=== PATIENT | female | born 1985 | race Caucasian/White ===

== ENCOUNTER 2022-12-05 12:35 | Inpatient (IN) | payer OTHER ==
[~2022-12-05] VITALS: Ht 157.5 cm; Wt 90.3 kg
[2022-12-05] MEDS ORDERED: LACTATED RINGERS 1,000 ML IV SCH (13:25)
[2022-12-05] MEDS: LACTATED RINGERS 1,000 ML IV SCH ×2 (13:49→19:27)
[2022-12-05] MEDS ORDERED: METHYLERGONOVINE 0.2 MG/ML AMP IM PRN (13:50)
[2022-12-05 14:06] LABS: BASOPHILS % (AUTO) 0.1 % (0.0-2.0); EOSINOPHILS # (AUTO) 0.1 K/uL (0-0.4); EOSINOPHILS % (AUTO) 0.6 % (0.0-4.0); HEMATOCRIT 36.3 % (36-48); HEMOGLOBIN 12.4 g/dL (12.0-16.0); LYMPHOCYTES # (AUTO) 1.7 K/uL (2.5-16.5); LYMPHOCYTES % (AUTO) 17.3 % (20.5-51.1); MEAN CORPUSCULAR HEMOGLOBIN 31 pg (27-31); MEAN CORPUSCULAR HGB CONC 34 g/dL (33-37); MEAN CORPUSCULAR VOLUME 89.5 fL (80-94); MONOCYTES # (AUTO) 0.6 K/uL (0.8-1.0); MONOCYTES % (AUTO) 6.3 % (1.7-9.3); NEUTROPHILS # (AUTO) 7.4 K/uL (1.8-7.7); NEUTROPHILS % (AUTO) 75.7 % (42.2-75.2); PLATELET COUNT (AUTO) 262 K/uL (140-450); RED BLOOD CELL COUNT(AUTO) 4.06 MIL/uL (4.20-5.40); RED CELL DISTRIBUTION WIDTH 13.5 % (11.6-13.7); WHITE BLOOD COUNT (AUTO) 9.8 K/uL (4.8-10.8)
[2022-12-05 14:10] LABS: APPEARANCE,URINE CLEAR (CLEAR); BILIRUBIN,URINE NEGATIVE (NEGATIVE); BLOOD, URINE NEGATIVE (NEGATIVE); COLOR,URINE YELLOW (YELLOW); LEUKOCYTE ESTERASE ,URINE NEGATIVE (NEGATIVE); NITRITE, URINE NEGATIVE (NEGATIVE); UGLUCOSE NEGATIVE (NEGATIVE)
[2022-12-05 14:21] LABS: PROTHROMBIN TIME 9.8 secs (10.8-13.4)
[2022-12-05] MEDS ORDERED: OXYTOCIN 20 UNITS in LACTATED RINGERS 1,000 ML IV SCH (14:25)
[2022-12-05] MEDS ORDERED: LEVO0.155 PO (14:33)
[2022-12-05] MEDS ORDERED: PREN-537 PO (14:33)
[2022-12-05] MEDS ORDERED: ROC.25 PO (14:33)
[2022-12-05 14:38] LABS: ALBUMIN 2.7 g/dL (3.4-5.0); ANION GAP 14.3 (8-16); CARBON DIOXIDE 23.3 mmol/L (21-32); CREATININE 0.5 mg/dL (0.6-1.3); POTASSIUM 3.6 mmol/L (3.5-5.1); TOTAL BILIRUBIN 0.4 mg/dL (0.0-1.0)
[2022-12-05] MEDS ORDERED: OXYTOCIN 20 UNITS/LR PREMIX 1,000 ML IV ONE (14:45)
--- NOTE | 2022-12-05 16:16 | NUR ---
PATIENT HAS BEEN SCREENED AND CATEGORIZED LOW NUTRITION RISK. PATIENT WILL BE SEEN WITHIN 7 DAYS OF ADMISSION. 12/12/22 REVIEWED BY RAJESH T[address]
[2022-12-05] MEDS: ONDANSETRON 4 MG/2 ML VIAL IVP PRN (18:42)
[2022-12-05] MEDS: NALBUPHINE 10 MG/ML AMP IVP PRN ×2 (18:44→23:42)
[2022-12-06] MEDS: NALBUPHINE 10 MG/ML AMP IVP PRN ×2 (02:47→13:04)
[2022-12-06] MEDS: LACTATED RINGERS 1,000 ML IV SCH ×4 (02:51→23:56)
[2022-12-07] MEDS: NALBUPHINE 10 MG/ML AMP IVP PRN (02:07)
[2022-12-07] MEDS: ONDANSETRON 4 MG/2 ML VIAL IVP PRN (02:08)
[2022-12-07] MEDS ORDERED: OXYTOCIN 20 UNITS/LR PREMIX 1,000 ML IV ONE (03:35)
[2022-12-07] MEDS ORDERED: METHYLERGONOVINE 0.2 MG/ML AMP IM PRN (04:05)
[2022-12-07] MEDS ORDERED: IBUPROFEN 800 MG TAB PO PRN (04:05)
[2022-12-07] MEDS ORDERED: TEMAZEPAM 15 MG CAP PO PRN (04:05)
[2022-12-07] MEDS ORDERED: METHYLERGONOVINE 0.2 MG TAB PO PRN (04:05)
[2022-12-07] MEDS ORDERED: OXYTOCIN 10 UNITS/ML VIAL IM PRN (04:05)
[2022-12-07] MEDS ORDERED: BENZOCAINE/MENTHOL 20%-0.5% 60 GM CAN TP PRN (04:05)
[2022-12-07] MEDS ORDERED: oxyCODONE/APAP 5/325 MG 1 TAB TAB PO PRN ×2 (04:05)
[2022-12-07] MEDS ORDERED: DOCUSATE SOD/SENNA 50/8.6 MG 1 TAB PO SCH (21:00)
[2022-12-08 05:52] LABS: HEMATOCRIT 30.3 % (36-48); HEMOGLOBIN 10.6 g/dL (12.0-16.0)
== END 2022-12-08 16:55 | disposition home or self-care (01) | DRG 560 ==
LOC: MLD 12:35 → MFCC 12-07 05:47
PROVIDERS: ADMIT Obstetrics & Gynecology; ATTEND Obstetrics & Gynecology
PROC: 10D07Z6 Extraction of Products of Conception, Vacuum, Via Natural or Artificial Opening (ICD-10-PCS; principal; 2022-12-07)
PROC: 0HQ9XZZ Repair Perineum Skin, External Approach (ICD-10-PCS; 2022-12-07)
PROC: 3E033VJ Introduction of Other Hormone into Peripheral Vein, Percutaneous Approach (ICD-10-PCS; 2022-12-07)
DX: O48.0 Post-term pregnancy (principal); Z37.0 Single live birth; R71.0 Precipitous drop in hematocrit; O69.81X0 Labor and delivery complicated by cord around neck, without compression, not applicable or unspecified; O76 Abnormality in fetal heart rate and rhythm complicating labor and delivery; Z3A.40 40 weeks gestation of pregnancy; O70.0 First degree perineal laceration during delivery; Z20.822 Contact with and (suspected) exposure to COVID-19
CPT/HCPCS: 36415; 76815; 80053; 81003; 85018; 85025; 85610; 85730; 86592; 86886; 86900; 86901; J2210; J2300; J2405; J2590; J7120; Q0092